=== PATIENT | female | born 1970 | race Caucasian/White ===

== ENCOUNTER 2017-01-06 10:01 | Emergency (ER) | payer BC ==
[~2017-01-06] VITALS: Ht 170.2 cm; Wt 69.1 kg
[2017-01-06 10:58] LABS: HEMATOCRIT 43.5 % (36.0-46.0); MCH 31.6 PG (29.0-34.0); MCHC 33.3 G/DL (30.0-36.0); MCV 94.8 FL (83-99); MEAN PLAT.VOLUME 9.8 uM^3 (9.5-12.4); PLATELET COUNT 286 K/uL (156-360); RBC DIS.WIDTH-CV 12.8 % (11.8-14.6); RBC DIS.WIDTH-SD 44.4 % (39-53); RED BLOOD COUNT 4.59 M/uL (3.80-5.20); WHITE BLOOD COUNT 8.4 K/uL (4.1-10.2)
[2017-01-06 11:09] LABS: CHLORIDE 105 mEq/L (99-109); POTASSIUM 4.2 mEq/L (3.7-5.4); SODIUM 140 mEq/L (136-147)
[2017-01-06 11:11] LABS: GLUCOSE 97 mg/dL (70-99)
[2017-01-06 11:12] LABS: ANION GAP 9 MEQ/L (2-14)
[2017-01-06 11:13] LABS: TOTAL BILIRUBIN 0.5 mg/dL (0.0-1.0)
[2017-01-06 11:15] LABS: ALKALINE PHOSPHATASE 65 IU/L (3-129); GFR ESTIMATE (CALCULATED) > 59 mL/min/
[2017-01-06 11:16] LABS: UREA NITROGEN (BUN) 10 mg/dL (9-23)
[2017-01-06 11:24] LABS: QUANTITATIVE HCG < 4.0 MIU/ML
[2017-01-06 12:21] VITALS: BP 102/66
[2017-01-06 12:32] LABS: ADD MIUA? NO; BILIRUBIN NEGATIVE; BLOOD NEGATIVE; COLOR STRAW ((YELLOW)); GLUCOSE (STRIP) NEGATIVE; KETONES 5; LEUKOCYTES NEGATIVE; NITRITE NEGATIVE; PROTEIN (STRIP) NEGATIVE; SPECIFIC GRAVITY 1.003 (1.000-1.030); UCUL ADDED? NO; UROBILINOGEN 0.2 MG/DL (0.2-1.0)
[2017-01-06] MEDS ORDERED: CITRATE OF MAG296 ML PO (13:27)
[2017-01-06] MEDS ORDERED: MIRALAX17 GM PO (13:27)
== END 2017-01-06 13:57 | disposition home or self-care (01) ==
LOC: EME 10:01
DX: K59.00 Constipation, unspecified (principal); R10.9 Unspecified abdominal pain; M54.5 Low back pain
CPT/HCPCS: 74177; 80053; 81003; 84702; 85027; 99281; 99285; J2270; J2405; J7040